=== PATIENT | male | born 1990 | race Two or more races ===

== ENCOUNTER 2022-12-22 10:14 | Emergency (ER) | payer MEDICAID ==
[~2022-12-22] VITALS: Ht 167.6 cm; Wt 67.5 kg
[2022-12-22 10:41] VITALS: BP 133/95
[2022-12-22] MEDS ORDERED: CEPH-510 PO (11:09)
[2022-12-22] MEDS ORDERED: IBUP600T28 PO (11:09)
[2022-12-22] MEDS ORDERED: NEOMYCIN-BACITRACIN-POLYM 15GM TOP OINT TOP SCH (11:15)
[2022-12-22] MEDS ORDERED: IBUPROFEN 600 MG TAB PO ONE (11:15)
[2022-12-22] MEDS ORDERED: NEOMYCIN-BACITRACIN-POLYM 15GM TOP OINT TOP ONE (11:30)
== END 2022-12-22 11:53 | disposition home or self-care (01) ==
LOC: ER 10:14
DX: L03.115 Cellulitis of right lower limb (principal); T63.391A Toxic effect of venom of other spider, accidental (unintentional), initial encounter; Y92.89 Other specified places as the place of occurrence of the external cause
CPT/HCPCS: 93971